=== PATIENT | male | born 1990 | race Two or more races ===

== ENCOUNTER → 2019-05-12 19:56 | Emergency (ER) | payer OTHER ==
[~2019-05-12] VITALS: Ht 180.3 cm; Wt 90.7 kg
[~2019-05-12 19:56] MED LIST: ACETAMINOPHEN 325 MG TAB PO ONE; KETOROLAC TROMETH 30 MG/ML 1ML VIAL IV ONE; SODIUM CHLORIDE 0.9% 1,000 ML IV ONE; cefTRIAXone 1GM/50ML D5W 50 ML IV ONE; cefTRIAXone SOD 1,000 MG VL IM ONE
[2019-05-12 22:25] VITALS: BP 109/65
== END | disposition home or self-care (01) ==
LOC: ER 19:56
DX: J03.00 Acute streptococcal tonsillitis, unspecified (principal); M27.69 Other endosseous dental implant failure; K04.7 Periapical abscess without sinus; H92.01 Otalgia, right ear
CPT/HCPCS: 71045; 96365; 96375; 99283; J0696; J1885; J7030